=== PATIENT | female | born 1980 ===

== ENCOUNTER → 2024-08-02 | Outpatient (CLI) | payer OTHER ==
[2024-08-08 10:49] LABS: CALCIUM, URINE - PER 24H 39 mg/d (100-250); CALCIUM, URINE - PER VOLUME 9.7 mg/dL; CHLORIDE, URINE - PER 24H 44 mmol/d (140-250); CHLORIDE, URINE - PER VOLUME 111 mmol/L; CITRIC ACID, URINE - PER 24H 118 mg/d (320-1240); CITRIC ACID,URINE - PER VOLUME 296 mg/L; CREATININE, URINE - PER 24H 312 mg/d (700-1600); CREATININE, URINE - PER VOLUME 78 mg/dL; HOURS COLLECTED 24 hr; MAGNESIUM, URINE - PER VOLUME 5.2 mg/dL; MAGNESIUM, URINE PER 24H 21 mg/d (12-199); OXALATE, URINE - PER 24H 10 mg/d (13-40); OXALATE, URINE - PER VOLUME 25 mg/L; PH, URINE 6.32 (5.00-7.50); PHOSPHORUS, URINE - PER 24H 196 mg/d (400-1300); PHOSPHORUS, URINE - PER VOLUME 49 mg/dL; POTASSIUM, URINE - PER 24H 11 mmol/d (25-125); POTASSIUM, URINE - PER VOLUME 28 mmol/L; SODIUM, URINE - PER 24H 42 mmol/d (51-286); SODIUM, URINE - PER VOLUME 106 mmol/L; SULFATE, URINE - PER 24H 4 mmol/d (6-30); SULFATE, URINE - PER VOLUME 9 mmol/L; TOTAL VOLUME 400 mL; URIC ACID, URINE - PER 24H 143 mg/d (250-750); URIC ACID, URINE - PER VOLUME 35.7 mg/dL; URINE SUPERSATURATION INTERP Abnormal; URINE SUPERSATURATION, CAHPO4 1.93; URINE SUPERSATURATION, CAOX 5.53; URINE SUPERSATURATION, UA CALC 0.26
== END ==
LOC: LAB 13:54 → LAB SHORT 13:54 → LAB FUT 06-14 11:30
PROVIDERS: Urology
DX: N20.0 Calculus of kidney (principal)
CPT/HCPCS: 81003; 81050; 82131; 82140; 82340; 82436; 82507; 82570; 83735; 83935; 83945; 84105; 84133; 84300; 84392; 84560